=== PATIENT | female | born 1970 | race Caucasian/White ===

== ENCOUNTER 2016-06-04 11:52 | Emergency (ER) | payer OTHER ==
[2016-06-04] MEDS ORDERED: NS 1,000 ML IV ONE (12:01)
[2016-06-04] MEDS ORDERED: fentaNYL 100 MCG/2 ML INJ IVP ONE (12:02)
--- NOTE | 2016-06-04 12:19 | UCPHY ---
H & P Time Seen by Provider: 06/04/16 11:58 Patient Type: New HPI/ROS: HPI Chest pain. 45-year-old female by private vehicle. She complains of right upper mid chest pain which she describes as a dull ache since . No history of trauma. She denies any shortness of breath. She reports that she has had this pain in the past it has resolved spontaneously after about a day. She reports that it has lasted much longer this time and this is what has her concerned and seeking evaluation. She does not have any history of coronary artery disease. No significant coronary artery disease risk factors. ROS: Constitutional: No fever, no chills. No weakness. Respiratory: No cough. No shortness of breath. Cardiac: As above, no palpitations. Gastrointestinal: No abdominal pain, no vomiting, no diarrhea. Musculoskeletal: No back pain. No neck pain. No myalgias or arthralgias. Skin: No rashes. Neurological: No headache. No focal weakness or altered sensation. Past medical history: Denies. No primary care physician currently. Social history: Nonsmoker. Here by herself. Physical Exam: General Appearance: Alert, no distress. This patient is responding to questions appropriately and in full sentences. This patient appears well- hydrated and well-nourished. Eyes: Pupils equal and round no pallor or injection. No lid edema, erythema or injection. Respiratory: There are no retractions, lungs are clear to auscultation with good air movement bilaterally. No significant tenderness on palpation of the chest wall. Cardiovascular: Regular rate and rhythm. No murmur. Gastrointestinal: Abdomen is soft and nontender, no masses, bowel sounds normal. No focal tenderness at McBurney's point. No Melton sign. Neurological: Motor sensory function is grossly intact. Cranial nerves are normal. Gait is normal. Skin: Warm and dry, no rashes noted on inspection of the chest wall.. Musculoskeletal: Neck is supple and nontender. Extremities are symmetrical. All joints range without pain or impingement. Psychiatric: No agitation. No depression. Database: EKG: EKG time is 12:26 p.m.; EKG shows a narrow complex normal sinus rhythm with a ventricular rate of 72. The SD, QRS, QT intervals are within normal limits. There are no ST-T wave changes indicative of ischemic or injury pattern. No evidence of right heart strain. Interpreted by me. Imaging: Chest x-ray PA and lateral; the cardiac mediastinal silhouette is unremarkable. No evidence of infiltrate or pneumothorax. No acute cardiopulmonary disease process noted. Interpreted by me. Procedures: Emergency department course: EKG performed. Patient given 324 mg of chewed aspirin. IV placed. Patient placed on a athletic monitor. Vital signs have been reviewed. 1:10 p.m., patient re-evaluated. Waiting on troponin. She is comfortable at this time. Denies any significant chest pain. 1:30 p.m., patient re-evaluated. Results of all blood work, chest x-ray and EKG reviewed with her. She feels comfortable going home. I feel she is safe for discharge with Cardiology follow-up provocative testing within 72 hours. She is in agreement with this plan. Return to emergency department precautions have been discussed with her. All of her questions were answered. She was discharged in good condition. Differential Diagnosis: The differential diagnosis on this patient includes but is not limited to musculoskeletal chest wall pain, esophageal spasm, pleurisy, acute coronary syndrome, pulmonary embolism, subclavian venous thrombosis, aortic dissection. This represents a partial list of diagnoses considered. These considerations are based on history, physical exam, past history, reassessment and diagnostic testing. Smoking Status: Never smoked Constitutional: Initial Vital Signs Temperature (C) 36.8 C 06/04/16 12:09 Heart Rate 80 06/04/16 12:09 Respiratory Rate 16 06/04/16 12:09 Blood Pressure 121/87 H 06/04/16 12:09 O2 Sat (%) 99 06/04/16 12:09 O2 Delivery Mode Room Air Allergies/Adverse Reactions: No Known Allergies Allergy (Verified 06/04/16 12:08) Home Medications: Medication Instructions Recorded NK [No Known Home Meds] 06/04/16 Medical Decision Making - Data Points Laboratory Results: Laboratory Results 06/04/16 12:35 06/04/16 12:35 D-Dimer < 0.27 ug/mLFEU (0.00-0.50) Sodium 137 mEq/L (134-144) Potassium 4.1 mEq/L (3.5-5.2) Chloride 100 mEq/L (97-110) Carbon Dioxide 29 mEq/l (22-31) Anion Gap 8 mEq/L (8-16) BUN 17 mg/dL (7-23) Creatinine 0.9 mg/dL (0.6-1.0) Estimated GFR > 60 Glucose 84 mg/dL (70-100) Calcium 9.6 mg/dL (8.5-10.4) Troponin I < 0.012 ng/mL (0-0.034) Beta HCG, Qual NEGATIVE Medications Given: Discontinued Medications Aspirin (Aspirin) 324 mg PO EDNOW ONE Stop: 06/04/16 12:41 Last Admin: 06/04/16 12:58 Dose: 324 mg Fentanyl (Sublimaze) 25 mcg IVP EDNOW ONE Stop: 06/04/16 12:03 Last Admin: 06/04/16 13:28 Dose: Not Given Sodium Chloride (Ns) 1,000 mls @ 0 mls/hr IV ONCE ONE PRN Reason: Wide Open Stop: 06/04/16 12:02 Last Admin: 06/04/16 13:29 Dose: Not Given Departure - Departure Disposition: Home, Routine, Self-Care Clinical Impression: Chest pain Condition: Good Instructions: Chest Pain (ED) Additional Instructions: Read and follow provided instructions. Follow-up with Cardiology, Dr. Junior Vance, 1 of his partners on Monday or Monday of this week for stress test and re-evaluation as discussed. Return to the emergency department for worsening chest pain, shortness of breath or other serious concerns. Referrals: [place] STATE,. [Primary Care Provider] - As per Instructions Junior Vance MD [Medical Doctor] - As per Instructions - PQRS PQRS Measurement: Not applicable.
--- NOTE | 2016-06-04 12:28 | CPEKG ---
Heart Rate: 72 RR Interval: 833 P-R Interval: 136 QRSD Interval: 82 QT Interval: 396 QTC Interval: 434 P Neely: 79 QRS Neely: 82 T Wave Neely: 12 EKG Severity - NORMAL ECG - EKG Impression: SINUS RHYTHM Electronically Signed By: Roz Larkin 04-Jun-2016 12:45:17
--- NOTE | 2016-06-04 12:36 | DX ---
PA and Lateral Chest June 04, 2016 Indication: Chest pain. Findings: The lungs are well-aerated and clear. No pneumothorax, edema, consolidation or effusion. He art size normal. Impression: Clear lungs. No acute process.
[2016-06-04] MEDS ORDERED: ASPIRIN 81 MG CHEWABLE TAB PO ONE (12:40)
[2016-06-04 12:58] LABS: ANION GAP 8 mEq/L (8-16); CALCIUM 9.6 mg/dL (8.5-10.4); CARBON DIOXIDE 29 mEq/l (22-31); CHLORIDE 100 mEq/L (97-110); CREATININE 0.9 mg/dL (0.6-1.0); GLOMERULAR FILTRATION RATE > 60; GLUCOSE 84 mg/dL (70-100); POTASSIUM 4.1 mEq/L (3.5-5.2); SODIUM 137 mEq/L (134-144)
[2016-06-04 13:20] LABS: TROPONIN I < 0.012 ng/mL (0-0.034)
[2016-06-04 13:58] VITALS: BP 107/69; PULSE 64; RESP 17; TEMP 98.4; O2SAT 97
== END 2016-06-04 13:58 | disposition home or self-care (01) ==
LOC: CED 11:52
DX: R07.9 Chest pain, unspecified (principal)
CPT/HCPCS: 71020-PO; 80048-PO; 84484-PO; 84703-PO; 85378-PO; 93010-PO; 99203-PO; G0463-PO; J3010

== ENCOUNTER 2016-06-07 17:11 | Emergency (ER) | payer BC, OTHER ==
[2016-06-07 17:19] VITALS: RESP 16
--- NOTE | 2016-06-07 17:38 | CPEKG ---
Heart Rate: 75 RR Interval: 800 P-R Interval: 128 QRSD Interval: 78 QT Interval: 380 QTC Interval: 425 P Loret[place]: 82 QRS [place]: 94 T Wave [place]: 39 EKG Severity - OTHERWISE NORMAL ECG - EKG Impression: SINUS RHYTHM EKG Impression: BORDERLINE RIGHT AXIS DEVIATION Electronically Signed By: Jeff Rosas 07-Jun-2016 19:18:15
[2016-06-07 18:04] LABS: % IMMATURE GRANULYOCYTES 0.2 % (0.0-1.1); ABSOLUTE IMMATURE GRANULOCYTES 0.02 10^3/uL (0.00-0.10); ADD DIFF? NO; ADD MORPH? NO; ADD SCAN? NO; ATYPICAL LYMPHOCYTE FLAG 10 (0-99); FRAGMENT RBC FLAG 0 (0-99); HEMOGLOBIN 14.8 g/dL (12.6-16.3); LEFT SHIFT FLG 0 (0-99); LIPEMIA HEMOLYSIS FLAG 90 (0-99); MEAN CELL HEMOGLOBIN CONCENTR. 35.2 g/dL (32.4-36.7); PLATELET CLUMPS FLAG 0 (0-99); PLATELET COUNT 274 10^3/uL (150-400); RED BLOOD CELL COUNT 4.94 10^6/uL (4.18-5.33); RED CELL DISTRIBUTION WIDTH 11.9 % (11.5-15.2)
[2016-06-07 18:22] LABS: ALANINE AMINOTRANSFERASE 29 IU/L (9-52); ALBUMIN 4.2 g/dL (3.5-5.0); ALKALINE PHOSPHATASE 54 IU/L (38-126); ANION GAP 10 mEq/L (8-16); ASPARTATE AMINOTRANSFERASE 19 IU/L (14-46); BILIRUBIN,TOTAL 0.6 mg/dL (0.1-1.4); BILIRUBIN-CONJUGATED 0.3 mg/dL (0.0-0.5); BILIRUBIN-UNCONJUGATED 0.3 mg/dL (0.0-1.1); CALCIUM 9.3 mg/dL (8.5-10.4); CARBON DIOXIDE 28 mEq/l (22-31); CHLORIDE 99 mEq/L (97-110); CREATININE 0.8 mg/dL (0.6-1.0); GLOMERULAR FILTRATION RATE > 60; GLUCOSE 84 mg/dL (70-100); POTASSIUM 3.9 mEq/L (3.5-5.2); SODIUM 137 mEq/L (134-144); TOTAL PROTEIN 7.2 g/dL (6.3-8.2)
[2016-06-07 18:33] LABS: TROPONIN I < 0.012 ng/mL (0-0.034)
--- NOTE | 2016-06-07 19:15 | DX ---
PA and Lateral Chest June 07, 2016 Clinical Indications: Chest pain. Comparison: June 04, 2016. Findings: The lungs are clear, and no masses are found. The heart and pulmonary vessels are normal. There are no pleural effusions and no pneumothorax. The bones are unremarkable for this age. Impression: No acute cardiopulmonary process.
--- NOTE | 2016-06-07 19:29 | EDPHY ---
H & P Stated Complaint: awoke w rt sided CP 1 wk ago. seen at 2 d ago, EKG was wnl. HPI/ROS: Chief complaint: Chest pain History of present illness: This is a 45-year-old female who presents to the emergency department for evaluation of chest pain. Patient reports the onset of symptoms 1 week ago. She describes a sharp pain in the right side of her chest that radiates down into her abdomen and into her back. It is worse with deep breathing. She denies precipitating factors. She denies alleviating factors. She denies other associated signs or symptoms including no fevers, no cold symptoms, no trouble breathing or cough, no pain or swelling in the legs, no history of trauma. She has never had similar. She was seen at urgent care 2 days ago and had an EKG, blood studies and chest x-ray which were normal. Review of systems: A 10 point review of systems was obtained and other than described above was negative - Personal History LMP (Females 10-55): 8-14 Days Ago Current Tetanus/Diphtheria Vaccine: Unsure Current Tetanus Diphtheria and Acellular Pertussis (TDAP): Unsure Tetanus Vaccine Date: unsure - Medical/Surgical History Hx Asthma: No Hx Chronic Respiratory Disease: No Hx Diabetes: No Hx Cardiac Disease: No Hx Renal Disease: No Hx Cirrhosis: No Hx Alcoholism: No Hx HIV/AIDS: No Hx Splenectomy or Spleen Trauma: No Other PMH: kidney stones - Social History Smoking Status: Never smoked - Physical Exam Exam: General Appearance: Alert, nontoxic. Eyes: Pupils equal and round no pallor or injection. ENT, Mouth: Mucous membranes moist. Respiratory: There are no retractions, lungs are clear to auscultation. Cardiovascular: Regular rate and rhythm. Gastrointestinal: Abdomen is soft and nontender, no masses, bowel sounds normal. Neurological: Alert and oriented. Strength and sensation intact and symmetrical. Skin: Warm and dry, no rashes. Musculoskeletal: Neck is supple nontender. Extremities are symmetrical, no edema, full range of motion. Psychiatric: Patient is oriented X 3, there is no agitation. Constitutional: Initial Vital Signs Temperature (C) 36.7 C 06/07/16 17:17 Heart Rate 83 06/07/16 17:17 Respiratory Rate 16 06/07/16 17:17 Blood Pressure 117/75 01/10/17 17:17 O2 Sat (%) 97 06/07/16 17:17 O2 Delivery Mode Room Air Allergies/Adverse Reactions: No Known Allergies Allergy (Verified 06/07/16 17:15) Home Medications: Medication Instructions Recorded NK [No Known Home Meds] 06/04/16 Medical Decision Making - Diagnostics Imaging: Chest x-ray negative ED Course/Re-evaluation: The patient is discussed with my secondary supervising physician Dr. Jeff Rosas. Patient presents to the emergency department with a one-week history of chest pain. On presentation patient is nontoxic. She is afebrile and vital signs are stable. Physical exam is benign. Patient is perc negative. Blood studies including CBC, complete metabolic panel, troponin, D-dimer and are negative, EKG unremarkable, chest x-ray unremarkable. I have discussed with her it is not clear as to the cause of her symptoms. I do believe she is appropriate for outpatient management for continued evaluation and care. She is referred to a primary care doctor. Home care is discussed. Strict return precautions are given. Patient voiced understanding and agreement with plan. Differential Diagnosis: Included but not limited to musculoskeletal pain, reflux, pulmonary infections, pneumothorax, pulmonary embolism, unlikely ACS or vessel dissection - Data Points Laboratory Results: Laboratory Results 06/07/16 17:50 06/07/16 17:50 06/07/16 17:50 WBC 8.20 10^3/uL (3.80-9.50) RBC 4.94 10^6/uL (4.18-5.33) Hgb 14.8 g/dL (12.6-16.3) Hct 42.0 % (38.0-47.0) MCV 85.0 fL (81.5-99.8) MCH 30.0 pg (27.9-34.1) MCHC 35.2 g/dL (32.4-36.7) RDW 11.9 % (11.5-15.2) Plt Count 274 10^3/uL (150-400) MPV 9.0 fL (8.7-11.7) Neut % (Auto) 58.6 % (39.3-74.2) Lymph % (Auto) 26.3 % (15.0-45.0) Barber % (Auto) 11.6 % (4.5-13.0) Eos % (Auto) 2.8 % (0.6-7.6) Baso % (Auto) 0.5 % (0.3-1.7) Nucleat RBC Rel Count 0.0 % (0.0-0.2) Absolute Neuts (auto) 4.80 10^3/uL (1.70-6.50) Absolute Lymphs (auto) 2.16 10^3/uL (1.00-3.00) Absolute Monos (auto) 0.95 H 10^3/uL (0.30-0.80) Absolute Eos (auto) 0.23 10^3/uL (0.03-0.40) Absolute Basos (auto) 0.04 10^3/uL (0.02-0.10) Absolute Nucleated RBC 0.00 10^3/uL (0-0.01) Immature Gran % 0.2 % (0.0-1.1) Immature Gran # 0.02 10^3/uL (0.00-0.10) D-Dimer 0.47 ug/mLFEU (0.00-0.50) Sodium 137 mEq/L (134-144) Potassium 3.9 mEq/L (3.5-5.2) Chloride 99 mEq/L (97-110) Carbon Dioxide 28 mEq/l (22-31) Anion Gap 10 mEq/L (8-16) BUN 18 mg/dL (7-23) Creatinine 0.8 mg/dL (0.6-1.0) Estimated GFR > 60 Glucose 84 mg/dL (70-100) Calcium 9.3 mg/dL (8.5-10.4) Total Bilirubin 0.6 mg/dL (0.1-1.4) Conjugated Bilirubin 0.3 mg/dL (0.0-0.5) Unconjugated Bilirubin 0.3 mg/dL (0.0-1.1) AST 19 IU/L (14-46) ALT 29 IU/L (9-52) Alkaline Phosphatase 54 IU/L (38-126) Troponin I < 0.012 ng/mL (0-0.034) Total Protein 7.2 g/dL (6.3-8.2) Albumin 4.2 g/dL (3.5-5.0) Lipase 237.0 IU/L (23-300) Beta HCG, Qual NEGATIVE Departure - Departure Disposition: Home, Routine, Self-Care Clinical Impression: Chest pain Qualifiers: Qualifier Code: (R07.9) Chest pain, unspecified Condition: Good Instructions: Chest Pain (ED) Additional Instructions: Follow-up with your primary care doctor this week for recheck Use ibuprofen 600 mg 3 times a day for the next 2-3 days for symptom control If symptoms worsen or new symptoms develop return to the emergency department for recheck Referrals: NONE *PRIMARY CARE P,. [Primary Care Provider] - As per Instructions Maude Watkins MD [Medical Doctor] - As per Instructions
[2016-06-07 19:41] VITALS: BP 121/86; PULSE 75; TEMP 98.2; O2SAT 95
== END 2016-06-07 19:41 | disposition home or self-care (01) ==
DX: R07.9 Chest pain, unspecified (principal)